=== PATIENT | male | born 1945 | race Hispanic/Latino ===

== ENCOUNTER 2018-03-05 09:50 | Outpatient (AMBR) | payer MEDICARE, SELFPAY ==
--- NOTE | 2018-03-05 10:33 | PT.OIERPT ---
PT OP Initial Eval Patient Information Pediatric or Adult Patient: Adult PT >13 Visit Reasons: Cerebrovascular accident Medical Diagnosis: CVA Treatment Dx #1: Muscle weakness Treatment Dx #2: unsteadiness on feet Start of Care: 03/05/18 Date of Onset: 02/19/2018 Initial Assessment Subjective 72 y/o male who was hospitalized 2 weeks ago due to CVA at [facility]. Patient stayed there for 1 week. patient has L sided weakness LUE > LLE. Patient is L handed and has difficulty doing activities on his L hand especially writing skills. Also has difficulty ambulation as per patient and he states I drag my foot. Objective Tinetti score balance , gait 04/19 total score Dynamometer L hand 50lbs, R hand = 75lbs L finger to nose test = Patient occasionally miss the therapist finger LUE ms strength 3+/5 grossly graded LLE ms strength 4/5 grossly graded mild L foot drop causing decrease HS to FF during initial stance phase. Assessment patient will benefit from skilled PT services secondary to patient has L UE/LE ms weakness causing gait deviations, problems on L hand coordination and L hand ms weakness, patient has difficulty writing, patient is L handed. patient also has slurred speech and L facial droop. Recommend to have ST but patient states he will think about it. Patient were advised if he change his mind to see his PCP and get a referral for ST. patient were advised if he can obtain records re: his hospitalization and his Head CT or MRI if its available. Short Term and Longterm Goals 1. to increase ms strength on L UE to 4+/5 2. Increase L hand embroidery specialist to 75 lbs 3. eliminate gait deviation and Increase ms strength on LLE to 5/5 Treatment Plan Thera ex Gait training Manual tx Frequency and Duration 2x/wk x 4 weeks and then 1x/wk x 4 week Certification Dates: 03/05/2018 to 06/05/2018 CVA/TIA Most Recent Cardiac Tests: No Data to Display
--- NOTE | 2018-03-05 10:48 | PTNOTE_ITS ---
PT OP Initial Eval Patient Information Pediatric or Adult Patient: Adult PT >13 Visit Reasons: Cerebrovascular accident Medical Diagnosis: CVA Treatment Dx #1: Muscle weakness Treatment Dx #2: unsteadiness on feet Start of Care: 03/05/18 Date of Onset: 02/19/2018 Initial Assessment Subjective 72 y/o male who was hospitalized 2 weeks ago due to CVA at [facility]. Patient stayed there for 1 week. patient has L sided weakness LUE > LLE. Patient is L handed and has difficulty doing activities on his L hand especially writing skills. Also has difficulty ambulation as per patient and he states I drag my foot. Objective Tinetti score balance , gait 04/19 total score Dynamometer L hand 50lbs, R hand = 75lbs L finger to nose test = Patient occasionally miss the therapist finger LUE ms strength 3+/5 grossly graded LLE ms strength 4/5 grossly graded mild L foot drop causing decrease HS to FF during initial stance phase. Assessment patient will benefit from skilled PT services secondary to patient has L UE/LE ms weakness causing gait deviations, problems on L hand coordination and L hand ms weakness, patient has difficulty writing, patient is L handed. patient also has slurred speech and L facial droop. Recommend to have ST but patient states he will think about it. Patient were advised if he change his mind to see his PCP and get a referral for ST. patient were advised if he can obtain records re: his hospitalization and his Head CT or MRI if its available. Short Term and Nursing Home Goals 1. to increase ms strength on L UE to 4+/5 2. 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 eliminate gait deviation and Increase ms strength on LLE to 5/5 Treatment Plan Thera ex Gait training Manual tx Frequency and Duration 2x/wk x 4 weeks and then 1x/wk x 4 week Certification Dates: 03/05/2018 to 06/05/2018 CVA/TIA Most Recent Cardiac Tests: 2 No Data to Display
== END 2018-03-07 23:59 | disposition home or self-care (01) ==
PROVIDERS: Referring Provider Internal Medicine; Visit Provider Internal Medicine
DX: I69.354 Hemiplegia and hemiparesis following cerebral infarction affecting left non-dominant side (principal)
CPT/HCPCS: 97162; G8978; G8979